=== PATIENT | male | born 1985 | race African-American/Black ===

== ENCOUNTER 2018-06-20 06:14 | Inpatient (IN) ==
[2018-06-20] MEDS ORDERED: Calcium Gluconate Inj 1 GM in Sodium Chlor 0.9% Inj 100 ML IV.SIG ONE (06:42)
[2018-06-20 06:44] LABS: Baso # (Auto) 0.1 th/mm3 (0.0-0.2); Baso % (Auto) 1.2 % (0.0-2.0); Eos # (Auto) 0.2 th/mm3 (0.0-0.4); Eos % (Auto) 3.1 % (0.0-4.0); Hematocrit 35.8 % (39.0-51.0); Lymph % (Auto) 13.3 % (9.0-44.0); Mean Corpuscular HGB Conc 33.4 % (32.0-36.0); Mean Corpuscular Hemoglobin 29.9 pg (27.0-34.0); Mean Corpuscular Volume 89.4 fL (80.0-100.0); Mean Platelet Volume 8.5 fL (7.0-11.0); Mono # (Auto) 0.4 th/mm3 (0.0-0.9); Mono % (Auto) 5.2 % (0.0-8.0); Neut # (Auto) 5.5 th/mm3 (1.8-7.7); Neut % (Auto) 77.2 % (16.0-70.0); Platelet Count 139 th/mm3 (150-450); Red Cell Distribution Width 17.8 % (11.6-17.2); White Blood Count 7.2 th/mm3 (4.0-11.0)
--- NOTE | 2018-06-20 06:51 | ED ---
HPI General Chief Complaint: Chest Pain Stated Complaint: Chest pains Time Seen by Provider: 06/20/18 06:26 Source: EMS Mode of arrival: EMS Limitations: other (Distress) History of Present Illness HPI narrative: 32-year-old male came to the emergency room brought in by EMS chest pain and respiratory distress. He has also been vomiting he told the EMS. Here the patient is not talking much. He is in end-stage kidney disease on hemodialysis. Patient is from [place] and his last dialysis was on . He missed his Thursday dialysis. His blood pressure was 189 systolic. Patient was also complaining of some chest pain. Once again he has not been talking much since he has come to the emergency room. It is hard for me to know the location and the intensity of the pain. Related Data Home Medications Medication Instructions Recorded Confirmed clonidine HCl 0.3 mg PO BID 06/20/18 06/20/18 hydralazine 100 mg PO TID 06/20/18 06/20/18 labetalol 400 mg PO BID 06/20/18 06/20/18 Allergies Allergy/AdvReac Type Severity Reaction Status Date / Time No Known Allergies Allergy Verified 06/20/18 06:26 Review of Systems ROS: all other systems reviewed are negative [facility] [place] Medical History Medical History AV fistula (Acute) Asthma (Acute) CHF (congestive heart failure) (Acute) Renal failure (Acute) Family History Family History Other Family history of hypertension Social History Social History Substance History: Active Abuse Second Hand Smoke Exposure: Yes Smoking Status: Current every day smoker Tobacco Type: Cigarettes How Often Do You Have a Drink Containing Alcohol: Never Recent Travel in [facility] within the Last 8 Weeks: Yes Recent Out of Country Travel within the Last 8 Weeks: No Substance Abuse Detail Marijuana: Substance Use Status: Active Route Used Substance Abuse: Inhalation Reason for Use: Get High Immunization History Tetanus Immunization: <5 Years Exam Narrative Exam Narrative: GENERAL: Moderate to significant distress, not very communicative SKIN: Focused skin assessment warm/dry. HEAD: Atraumatic. Normocephalic. EYES: Pupils equal and round. No scleral icterus. No injection or drainage. ENT: No nasal bleeding or discharge. Dry lips and mucous member. NECK: Trachea midline. No JVD. CARDIOVASCULAR: Regular rate and rhythm. No murmur appreciated. RESPIRATORY: Tachypnea, grunting, accessory muscles use for respiration GASTROINTESTINAL: Abdomen soft, non-tender, nondistended. Hepatic and splenic margins not palpable. MUSCULOSKELETAL: No obvious deformities. No clubbing. No cyanosis. No edema. NEUROLOGICAL: Awake and alert. No obvious cranial nerve deficits. Motor grossly within normal limits. Normal speech. PSYCHIATRIC: Appropriate mood and affect; insight and judgment normal. Course Initial Documented Vital Signs Pulse Rate 95 H 06/20/18 06:28 Respiratory Rate 20 06/20/18 06:28 Blood Pressure 185/104 H 06/20/18 06:28 Pulse Oximetry 95 06/20/18 06:28 Last Documented Vital Signs Temperature 98.8 F 06/20/18 12:00 Pulse Rate 77 06/20/18 12:00 Respiratory Rate 15 06/20/18 12:00 Blood Pressure 158/79 H 06/20/18 12:00 Pulse Oximetry 92 L 06/20/18 12:40 Critical Care Time Critical Care Time: Yes Total Critical Care Time: 30 Attestation: Aggregate critical care time was 30 minutes. Time to perform other separately billable procedures was not included in the critical care time. My time did not include minutes spent treating any other patients simultaneously or on activities that did not directly contribute to the patient's treatment. The services I provided to this patient were to treat and/or prevent clinically significant deterioration that could result in: Respiratory distress, hyperkalemia, end-stage kidney disease, hemodialysis dependent, hyperkalemia management, emergent dialysis I provided critical care services requiring my management, as noted below: Chart data review, documentation time, medication orders and management, vital sign assessments/reviewing monitor data, ordering and reviewing lab tests, ordering and interpreting/reviewing x-rays and diagnostic studies, care of the patient and discussion of the patient with the admitting physicians. Medical Decision Making MDM Narrative Medical decision making narrative: 6:52 AM I discussed the case with Dr. Spann was arranging for dialysis emergently. Given his potassium patient is getting IV calcium, IV bicarb, IV insulin and D50. I discussed the case with the manager play Dr. Aragon and he is here to see the patient and admit the patient to the ICU. Patient is in a critical condition. Patient was started on BiPAP. Current blood pressure is 173/102. Medical Screen Exam Complete: Yes Emergency Medical Condition: Yes Lab Data Result diagrams: 06/20/18 06:27 Lab Results 06/20/18 06/20/18 06/20/18 Range/Units 06:27 06:27 06:27 WBC 7.2 (4.0-11.0) th/mm3 RBC 4.00 L (4.50-5.90) mil/mm3 Hgb 12.0 L (13.0-17.0) gm/dL POC Hgb (Calc) 11.9 L (13.0-17.0) g/dL Hct 35.8 L (39.0-51.0) % POC Hct 35.0 L (39-51.0) % MCV 89.4 (80.0-100.0) fL MCH 29.9 (27.0-34.0) pg MCHC 33.4 (32.0-36.0) % RDW 17.8 H (11.6-17.2) % Plt Count 139 L (150-450) th/mm3 MPV 8.5 (7.0-11.0) fL Neut % (Auto) 77.2 H (16.0-70.0) % Lymph % (Auto) 13.3 (9.0-44.0) % [place] % (Auto) 5.2 (0.0-8.0) % Eos % (Auto) 3.1 (0.0-4.0) % Baso % (Auto) 1.2 (0.0-2.0) % Neut # (Auto) 5.5 (1.8-7.7) th/mm3 Lymph # (Auto) 1.0 (1.0-4.8) th/mm3 [place] # (Auto) 0.4 (0.0-0.9) th/mm3 Eos # (Auto) 0.2 (0.0-0.4) th/mm3 Baso # (Auto) 0.1 (0.0-0.2) th/mm3 WBC Differential . Differential Comment Auto diff final POC Sodium 138 (137-144) mmol/L POC Potassium 7.4 H* (3.6-5.0) mmol/L POC Chloride 110 (102-111) mmol/L POC BUN 80 H (5-21) mg/dL POC Creatinine 17.5 H* (0.6-1.3) mg/dL POC Glucose 88 (68-110) mg/dL Troponin I 0.34 H (0.02-0.05) ng/mL Nasal Screen MRSA (PCR) (Negative) Hepatitis A IgM Ab (Nonreactive) Hep Bs Antigen (Nonreactive) Hep B Core IgM Ab (Nonreactive) Hep C IgG Ab (Nonreactive) 06/20/18 06/20/18 Range/Units 08:40 09:20 WBC (4.0-11.0) th/mm3 RBC (4.50-5.90) mil/mm3 Hgb (13.0-17.0) gm/dL POC Hgb (Calc) (13.0-17.0) g/dL Hct (39.0-51.0) % POC Hct (39-51.0) % MCV (80.0-100.0) fL MCH (27.0-34.0) pg MCHC (32.0-36.0) % RDW (11.6-17.2) % Plt Count (150-450) th/mm3 MPV (7.0-11.0) fL Neut % (Auto) (16.0-70.0) % Lymph % (Auto) (9.0-44.0) % [place] % (Auto) (0.0-8.0) % Eos % (Auto) (0.0-4.0) % Baso % (Auto) (0.0-2.0) % Neut # (Auto) (1.8-7.7) th/mm3 Lymph # (Auto) (1.0-4.8) th/mm3 [place] # (Auto) (0.0-0.9) th/mm3 Eos # (Auto) (0.0-0.4) th/mm3 Baso # (Auto) (0.0-0.2) th/mm3 WBC Differential Differential Comment POC Sodium (137-144) mmol/L POC Potassium (3.6-5.0) mmol/L POC Chloride (102-111) mmol/L POC BUN (5-21) mg/dL POC Creatinine (0.6-1.3) mg/dL POC Glucose (68-110) mg/dL Troponin I (0.02-0.05) ng/mL Nasal Screen MRSA (PCR) Not detected (Negative) Hepatitis A IgM Ab Nonreactive (Nonreactive) Hep Bs Antigen Nonreactive (Nonreactive) Hep B Core IgM Ab Nonreactive (Nonreactive) Hep C IgG Ab Nonreactive (Nonreactive) Imaging Data Radiologist's impression: Chest X-Ray 06/20/18 06:27 CONCLUSION: Moderate cardiomegaly in this 32-year-old, abnormal. Mild interstitial edema. Evaluation suggested. ECG Data Attestation: I personally reviewed and interpreted this ECG as follows: Interpretation: Twelve-lead EKG was reviewed by me. Normal sinus rhythm, left axis deviation, peaked T waves. Heart rate of 95 bpm Discharge Plan Discharge Disposition Patient Disposition: ED Admit(ED Internal Use Only) Discharge Order Discharge Orders: AMA Discharge (Routine); Ordered 06/20/18 Ordered By: Brannon Aragon ED Use Only Admit Order (Routine); Ordered 06/20/18 Ordered By: Ursula Caro Physicians Team ED Provider: Ursula Caro Primary Care Provider: UNKNOWN, Attending Provider: Brannon Aragon Other Providers: Vasquez Spann Status ED Status: Left Department Discharge Information Discharge Date/Time: 06/20/18 08:35
[2018-06-20] MEDS: Dextrose 50% in Water 50 ML Vial IV.PUSH ONE ×2 (06:58→07:03)
[2018-06-20] MEDS ORDERED: niCARdipine Inj 25 MG in Sodium Chlor 0.9% Inj 240 ML IV.CONT PRN (06:59)
[2018-06-20] MEDS ORDERED: Acetaminophen 325 MG Tablet PO PRN ×2 (07:00→07:02)
[2018-06-20] MEDS ORDERED: Morphine Inj 4 MG/ML Vial IV.PUSH PRN (07:00)
[2018-06-20] MEDS ORDERED: Bisacodyl 10 MG Supp RECTAL PRN (07:00)
[2018-06-20] MEDS ORDERED: Temazepam 15 MG Capsule PO PRN (07:00)
[2018-06-20] MEDS ORDERED: Heparin 10,000 UNITS/10 ML Vial (for IV use) OTHER PRN ×2 (07:02)
[2018-06-20] MEDS ORDERED: Sod Chloride 0.9% Inj 1,000 ML IV.CONT PRN (07:02)
[2018-06-20] MEDS ORDERED: Gelatin 12 MM/7 MM Topical Foam TOPICAL PRN (07:02)
[2018-06-20] MEDS ORDERED: Sod Chloride 0.9% Inj 1,000 ML OTHER PRN ×2 (07:02)
[2018-06-20] MEDS ORDERED: Albumin Human 25% Inj 100 ML IV.SIG PRN (07:02)
--- NOTE | 2018-06-20 07:08 | XR ---
EXAM DATE: 06/20/2018 6:47 AM EST AGE/SEX: 32 years / Male INDICATIONS: Dyspnea. CLINICAL DATA: This is the patient's initial encounter. Patient reports that signs and symptoms have been present for 1 day and indicates a pain score of 5/10. MEDICAL/SURGICAL HISTORY: Hypertension. Congestive heart failure. Renal failure. Dialysis. . AV fistula, Left. COMPARISON: No prior exams available for comparison. FINDINGS: A single AP view of the chest demonstrates the lungs to be symmetrically aerated without evidence of mass, infiltrate or effusion. There is moderate cardiomegaly with mild interstitial edema. Osseous st ructures are intact. CONCLUSION: Moderate cardiomegaly in this 32-year-old, abnormal. Mild interstitial edema. Evaluation suggested. Electronically signed by: Maycol Vaca MD Board Certified Radiologist 06/20/2018 7:07 AM EST
[2018-06-20] MEDS ORDERED: Heparin - SQ 10,000 UNITS/ML Vial SQ SCH (08:00)
[2018-06-20] MEDS ORDERED: Senna/Docusate Sodium 8.6/50 MG Tablet PO SCH (09:00)
[2018-06-20] MEDS ORDERED: Labetalol 200 MG Tablet PO SCH (09:00)
--- NOTE | 2018-06-20 09:42 | ECG ---
Date Performed: 06/20/2018 Time Performed: 06:20:33 PTAGE: 32 years EKG: Sinus rhythm POSSIBLE RIGHT ATRIAL ENLARGEMENT LEFT ATRIAL ENLARGEMENT MARKED LEFT AXIS DEVIATION INTRAVENTRICULA R CONDUCTION DELAY T WAVE CHANGES, PEAKED T WAVES ABNORMAL ECG NO PREVIOUS TRACING DOCTOR: Brenda Guerin Interpretating Date/Time 06/20/2018 09:41:32
--- NOTE | 2018-06-20 10:07 | P.CONNP ---
History of Present Illness Service: Nephrology Consult date: 06/20/18 Requesting Physician: Ursula Caro Reason for Consult: End-stage renal disease Primary Care Provider: UNKNOWN Chief Complaint: Shortness of breath and chest pain History of Present Illness: Patient is a 32-year-old -[place] male with history of end-stage renal disease, hypertension, he is from [place] and last dialysis was on , he has a left arm AV fistula, patient presented early today with increasing shortness of breath, chest pain and feeling sick, with nausea and vomiting, patient does not talk much, in the ER he was sick placed on BiPAP and then given treatment for hyperkalemia initial potassium of 7.4, peak T waves, he was given glucose, D50, insulin, sodium bicarbonate, when I saw him he was on dialysis and again answering questions briefly he is sleepy, he was off BiPAP machine and breathing better oxygen. Patient states he is on dialysis for last 5 years. Review of Systems Constitutional: Reports fatigue, Reports malaise Eyes: Denies blind spots, Denies blurry vision, Denies bulging eyes, Denies change in vision, Denies double vision, Denies discharge, Denies dry eyes, Denies floaters, Denies irritation, Denies itchy eyes, Denies loss of vision, Denies pain, Denies requires corrective lenses, Denies sensitivity to light, Denies other Ears, Nose, Mouth, and Throat: Denies abnormal hearing, Denies bleeding gums, Denies bad breath, Denies change in voice, Denies dental pain, Denies difficulty swallowing, Denies dizziness, Denies dry mouth, Denies ear discharge , Denies ear pain, Denies facial pain, Denies headache(s), Denies hearing loss, Denies hoarseness, Denies lip swelling, Denies nosebleed, Denies mouth lesions, Denies mouth pain, Denies nasal congestion, Denies nasal discharge, Denies nasal obstruction, Denies nasal trauma, Denies neck lump, Denies neck pain, Denies nose pain, Denies pain with swallowing, Denies poor balance, Denies post nasal drip, Denies ringing in the ears, Denies sinus pain, Denies sinus pressure , Denies sore throat, Denies throat swelling, Denies tongue swelling, Denies other Cardiovascular: Reports chest pain, Reports foot swelling, Reports generalized swelling, Reports shortness of breath Respiratory: Reports shortness of breath Gastrointestinal: Reports nausea, Reports vomiting Genitourinary: Reports urinary frequency (Diminished) Musculoskeletal: Reports muscle cramps Skin/Breast: Denies acne, Denies bleeding lesions, Denies boil, Denies breast swelling, Denies breast skin changes, Denies breast pain, Denies breast lump, Denies change in breast shape, Denies change in hair, Denies change in skin color, Denies changing lesions, Denies dry skin, Denies excessive hair growth, Denies hair loss, Denies itching, Denies lesions, Denies nail changes, Denies new lesions, Denies nipple discharge, Denies non-healing lesions, Denies redness , Denies sensitivity to light, Denies rash, Denies skin pain, Denies skin ulcer , Denies sores, Denies stretch quinones, Denies unusual bruising, Denies wounds, Denies yellowing of the skin, Denies other Neurologic: Reports weakness Psychiatric: Denies abnormal sleep pattern, Denies anxiety, Denies behavioral changes, Denies change in appetite, Denies change in sex drive, Denies confusion , Denies depression, Denies difficulty concentrating, Denies hearing things others do not hear, Denies hopelessness, Denies irritability, Denies lack of enjoyment, Denies memory loss, Denies mood swings, Denies panic attacks, Denies paranoia, Denies seeing things others do not see, Denies sensing things others do not sense, Denies tactile hallucinations, Denies thoughts of hurting/killing others, Denies thoughts of hurting/killing yourself, Denies other Endocrine: Denies cold intolerance, Denies excessive sweating, Denies flushing, Denies heat intolerance, Denies increased hunger, Denies increased thirst, Denies increased urination, Denies rapid, pounding, or irregular heartbeat, Denies other Hematologic/Lymphatic: Denies easy bleeding, Denies easy bruising, Denies enlarged lymph nodes, Denies other Allergic/Immunologic: Denies GI upset with certain foods, Denies hives, Denies itchy eyes, Denies lip swelling, Denies seasonal runny nose, Denies throat swelling, Denies tongue swelling, Denies wheezing, Denies other PMFSH - History History Provided By: Patient - Medical History Medical History: Medical History (Last Updated 06/20/18 @ 10:00 by Vasquez Spann MD) AV fistula Asthma CHF (congestive heart failure) Renal failure - Family History Family History: Family History (Last Updated 06/20/18 @ 10:00 by Vasquez Spann MD) Other Family history of hypertension - Social History I have reviewed the patient's Social History: Yes - Tobacco History Second Hand Smoke Exposure: Yes Tobacco Use In Past 30 Days: Yes Smoking Status: Current every day smoker Tobacco Type: Cigarettes - Alcohol History How Often Do You Have a Drink Containing Alcohol: Never - Substance Use History Substance History: Active Abuse - Substance Use Type Marijuana Status: Active Route Used: Inhalation Reason for Use: Get High - Travel History Recent Travel in the [place] Within the Last 8 Weeks: Yes Recent Travel Out of the Country Within the Last 8 Weeks: No - Immunization History Tetanus Immunization: <5 Years Medications and Allergies Active Medications: Active Medications Acetaminophen (Tylenol) 650 mg PO Q6H PRN PRN Reason: PAIN 1-10 AND/OR FEVER >101F Acetaminophen (Tylenol) 650 mg PO UNSCH PRN PRN Reason: SEE LABEL COMMENTS Al Hydroxide/Mg Hydroxide (Milk Of Brooke Pereyra) 30 ml PO Q12H PRN PRN Reason: Mild Constipation Albuterol (Duoneb Neb (Prn)) 1 ampul NEB Q2HR NEB PRN PRN Reason: WHEEZING Bisacodyl (Dulcolax Supp) 10 mg RECTAL DAILY PRN PRN Reason: SEVERE CONSITIPATION Chlorhexidine Gluconate (Chlorhexidine 2% Cloth) 3 pack TOPICAL DAILY@0400 PRN PRN Reason: Extra cloth needed Stop: 06/26/18 03:59 Chlorhexidine Gluconate (Chlorhexidine 2% Cloth) 3 pack TOPICAL DAILY@0400 [place] Stop: 06/26/18 03:59 Clonidine HCl (Catapres) 0.3 mg PO BID [place] Clonidine HCl (Catapres) 0.1 mg PO UNSCH PRN PRN Reason: SEE LABEL COMMENTS Diphenhydramine HCl (Benadryl) 25 mg PO UNSCH PRN PRN Reason: SEE LABEL COMMENTS Gelatin (Gelfoam 12 Mm/7 Mm Topical) 1 foam TOPICAL PRN PRN PRN Reason: help stop bleeding from site Gentamicin Sulfate (Gentamicin Inj) 20 mg OTHER WITH DIALYSIS PRN PRN Reason: Dwell Gentamycin Lock Heparin Sodium (Porcine) (Heparin Inj) 5,000 units SQ Q8H [facility] Last Admin: 06/20/18 07:42 Dose: 5,000 units Heparin Sodium (Porcine) (Heparin Inj) 8,000 units OTHER WITH DIALYSIS PRN PRN Reason: for machine prime Heparin Sodium (Porcine) (Heparin Inj) 1,000 units OTHER WITH DIALYSIS PRN PRN Reason: Dwell Heparin to Fill Catheter Hydralazine HCl (Apresoline) 100 mg PO TID [facility] Nicardipine HCl 25 mg/ Sodium (Chloride) 250 mls @ 50 mls/hr IV.CONT TITRATE PRN; Protocol PRN Reason: Per Protocol Albumin Human (Flexbumin 25% Inj) 100 mls @ 60 mls/hr IV.SIG WITH DIALYSIS PRN PRN Reason: hypotension / volume replace Sodium Chloride (Ns Inj) 1,000 mls @ 0 mls/hr OTHER .Q0M PRN PRN Reason: for prime and rinse back Sodium Chloride (Ns Inj) 1,000 mls @ 200 mls/hr OTHER .Q5H PRN PRN Reason: for dialyzer flush PRN Sodium Chloride (Ns Inj) 1,000 mls @ 0 mls/hr IV.CONT .Q0M PRN PRN Reason: hypotension / volume replace Labetalol HCl (Trandate) 400 mg PO BID [facility] Lactulose (Lactulose Liq) 30 ml PO DAILY PRN PRN Reason: SEVERE CONSITIPATION Mannitol (Mannitol Inj) 12.5 gm IV.PUSH UNSCH PRN PRN Reason: hypotension / volume replace Morphine Sulfate (Morphine Inj) 2 mg IV.PUSH Q2H PRN PRN Reason: PAIN SCALE 6 TO 10 Nitroglycerin (Nitrostat Sl) 0.4 mg SL Q5M PRN PRN Reason: CHEST PAIN Ondansetron HCl (Zofran Inj) 4 mg IV.PUSH Q6H PRN PRN Reason: NAUSEA OR VOMITING Ondansetron HCl (Zofran Inj) 4 mg IV.PUSH UNSCH PRN PRN Reason: NAUSEA OR VOMITING Senna/Docusate Sodium (Selene-Colace) 1 tab PO BID [facility] Sennosides (Senokot) 17.2 mg PO Q12H PRN PRN Reason: Moderate Constipation Sodium Chloride (Ns Flush) 2 ml IV.FLUSH BID [place] Sodium Chloride (Ns Flush) 2 ml IV.FLUSH PRN PRN PRN Reason: FLUSH AFTER USING IV ACCESS Sodium Chloride (Ns Flush) 5 ml IV.FLUSH PRN PRN PRN Reason: flush each lumen during HD Temazepam (Restoril) 15 mg PO HS PRN PRN Reason: INSOMNIA Allergies Allergy/AdvReac Type Severity Reaction Status Date / Time No Known Allergies Allergy Verified 06/20/18 06:26 Home Medications Medication Instructions Recorded Confirmed Type clonidine HCl 0.3 mg PO BID 06/20/18 06/20/18 History hydralazine 100 mg PO TID 06/20/18 06/20/18 History labetalol 400 mg PO BID 06/20/18 06/20/18 History Exam Vital signs: Vital Signs 06/20/18 06:28 06/20/18 07:37 06/20/18 08:38 Temperature Pulse Rate 95 H 78 Respiratory Rate 20 18 Blood Pressure 185/104 H 174/115 H Pulse Oximetry 95 100 100 06/20/18 09:00 Temperature 98.2 F Pulse Rate 79 Respiratory Rate 19 Blood Pressure 179/104 H Pulse Oximetry 100 Intake & Output 06/19/18 06/20/18 06/20/18 18:59 06:59 18:59 Intake Total 110 / 110 Balance 110 / 110 Weight 104.326 kg 95.9 kg Intake: IV 110 / 110 Calcium Gluconate Inj 1 GM In 110 / 110 NS Inj 100 ML @ 110 mls/hr IV. SIG ONCE ONE Rx#:[id number] Other: Weight On Admission 95.9 kg Narrative: GENERAL: Well-nourished, well-developed patient. SKIN: Warm and dry. HEAD: Normocephalic. EYES: No scleral icterus. No injection or drainage. NECK: Supple, trachea midline. No JVD or lymphadenopathy. CARDIOVASCULAR: Regular rate and rhythm without murmurs, gallops, or rubs. RESPIRATORY: Breath sounds diminished at bases. GASTROINTESTINAL: Abdomen soft, non-tender, nondistended. EXTREMITIES: 1+ edema, AV fistula left arm NEUROLOGICAL: Patient is sleepy, wakes up and oriented x 3. Non-focal. Results - Lab Results 06/20/18 06:27 Assessment and Plan - Assessment (1) End stage renal disease Code(s): N18.6 - End stage renal disease Status: Acute Plan: Patient has missed his dialysis and presented with increasing shortness of breath, chest pain and was in volume overload placed on BiPAP and now on dialysis feeling better, continue to remove fluids ultrafiltration of 4 L plan on 1K bath Repeat BMP after dialysis 2 g sodium 60 mEq of potassium renal diet Fluid restriction to 1.2 L a day (2) Hyperkalemia Code(s): E87.5 - Hyperkalemia Status: Acute Plan: Patient is on dialysis continue to follow (3) Hypertensive CHF Code(s): I11.0 - Hypertensive heart disease with heart failure Status: Acute Plan: Patient has diastolic dysfunction and volume overload Cardene drip restart outpatient medication (4) Hypertension Code(s): I10 - Essential (primary) hypertension Status: Acute Plan: Noncompliance with an hypertensive urgency
[2018-06-20 11:08] LABS: Hepatitis A IgM Antibody Nonreactive (Nonreactive); Hepatitits B Surface Antigen Nonreactive (Nonreactive)
[2018-06-20 12:43] VITALS: O2SAT 92
[2018-06-20 12:49] VITALS: BP 158/79; PULSE 77; TEMP 98.8
[2018-06-20 12:50] VITALS: RESP 15
--- NOTE | 2018-06-20 14:07 | P.HPCC ---
History of Present Illness Primary Care Physician: UNKNOWN Chief Complaint: Shortness of breath and chest pain History of Present Illness: 32-year-old -[place] male with history of end-stage renal disease, hypertension, he is from [place] and last dialysis was on , he has a left arm AV fistula, patient presented early today with increasing shortness of breath, chest pain and feeling sick, with nausea and vomiting, in the ER he was sick placed on BiPAP and then given treatment for hyperkalemia initial potassium of 7.4, peak T waves, he was given glucose, D50, insulin, sodium bicarbonate, when Patient states he is on dialysis for last 5 years. He was admitted to ICU for emergent dialysis and monitoring of his electrolytes disturbances. Inpatient Certification: I certify that the inpatient services were ordered in accordance with Medicare regulations governing the order. This includes certification that hospital inpatient services are reasonable and necessary and in the case of services not specified as inpatient-only under 42 CFR 419.22(n), that they are appropriately provided as inpatient services in accordance to with the 2-midnight benchmark under 43 CFR 412.3(e) Estimated Total Length of Stay (Days): 5 Plans for Post Hospital Care: Not yet determined Review of Systems unobtainable due to mental status PMFSH - History History Provided By: Patient - Medical History Medical History: Medical History (Last Updated 06/20/18 @ 10:00 by Vasquez Spann MD) AV fistula Asthma CHF (congestive heart failure) Renal failure - Family History Family History: Family History (Last Updated 06/20/18 @ 10:00 by Vasquez Spann MD) Other Family history of hypertension - Tobacco History Second Hand Smoke Exposure: Yes Tobacco Use In Past 30 Days: Yes Smoking Status: Current every day smoker Tobacco Type: Cigarettes - Alcohol History How Often Do You Have a Drink Containing Alcohol: Never - Substance Use History Substance History: Active Abuse - Substance Use Type Marijuana Status: Active Route Used: Inhalation Reason for Use: Get High - Travel History Recent Travel in the [place] Within the Last 8 Weeks: Yes Recent Travel Out of the Country Within the Last 8 Weeks: No - Immunization History Tetanus Immunization: Unsure Hx Influenza Vaccine This Season: Yes Medications and Allergies Allergies Allergy/AdvReac Type Severity Reaction Status Date / Time No Known Allergies Allergy Verified 06/20/18 06:26 Home Medications Medication Instructions Recorded Confirmed Type clonidine HCl 0.3 mg PO BID 06/20/18 06/20/18 History hydralazine 100 mg PO TID 06/20/18 06/20/18 History labetalol 400 mg PO BID 06/20/18 06/20/18 History Results - Labs CBC & Chem 7: 06/20/18 06:27 Labs: Short CBC 06/20/18 Range/Units 06:27 WBC 7.2 (4.0-11.0) th/mm3 Hgb 12.0 L (13.0-17.0) gm/dL Hct 35.8 L (39.0-51.0) % Plt Count 139 L (150-450) th/mm3 Cardiac Enzymes 06/20/18 Range/Units 06:27 Troponin I 0.34 H (0.02-0.05) ng/mL - Imaging Impressions Chest X-Ray 06/20/18 06:27 CONCLUSION: Moderate cardiomegaly in this 32-year-old, abnormal. Mild interstitial edema. Evaluation suggested. Exam Vital signs: Vital Signs 06/20/18 06:28 06/20/18 07:37 06/20/18 08:38 Temperature Pulse Rate 95 H 78 Respiratory Rate 20 18 Blood Pressure 185/104 H 174/115 H Pulse Oximetry 95 100 100 06/20/18 09:00 06/20/18 10:00 06/20/18 11:00 Temperature 98.2 F Pulse Rate 79 75 74 Respiratory Rate 19 18 14 Blood Pressure 179/104 H 146/84 H 183/89 H Pulse Oximetry 96 96 96 06/20/18 12:00 06/20/18 12:40 Temperature 98.8 F Pulse Rate 77 Respiratory Rate 15 Blood Pressure 158/79 H Pulse Oximetry 95 92 L Intake & Output 06/19/18 06/20/18 06/20/18 18:59 06:59 18:59 Intake Total 380 / 380 Balance 380 / 380 Weight 104.326 kg 95.9 kg Intake: IV 110 / 110 Calcium Gluconate Inj 1 GM In 110 / 110 NS Inj 100 ML @ 110 mls/hr IV. SIG ONCE ONE Rx#:[id number] Oral 270 / 270 Other: Weight On Admission 95.9 kg - Constitutional moderate distress - Routine HEENT Exam Head: Present: normocephalic, atraumatic Eye: Present: EOMI, PERRL, normal accommodation ENT: Present: mucous membranes moist - Routine Neck Exam Present: supple, full ROM. Absent: carotid bruit - Routine Chest/Breast/Axilla Exam Chest wall: Absent: tenderness, mass - Routine Respiratory Exam Present: accessory muscle use, respiratory distress, crackles - Routine Cardiovascular Exam Present: RRR, S1, S2 - Routine Abdominal Exam Present: soft, normoactive bowel sounds - Routine Extremities Exam Absent: cyanosis, clubbing, edema - Routine Skin Exam Present: intact. Absent: cyanosis, erythema - Routine Neurological Exam Present: alert, altered mental status, moving all extremities Septic Shock Reassessment Septic shock perfusion: reassessment completed Caprini VTE Risk Assessment Caprini VTE Risk Assessment: Moderate/High Risk (score >= 2) Caprini Risk Assessment Model: Point Value = 1 Point Value = 2 Point Value = 3 Point Value = 5 Age 41-60 Minor surgery BMI > 25 kg/m2 Swollen legs Varicose veins or History of unexplained or recurrent spontaneous Oral contraceptives or hormone replacement Sepsis (< 1 month) Serious lung disease, including pneumonia (< 1 month) Abnormal pulmonary function Acute myocardial infarction Congestive heart failure (< 1 month) History of inflammatory bowel disease Medical patient at bed rest Age 61-74 Arthroscopic surgery Major open surgery (> 45 min) Laparoscopic surgery (> 45 min) Malignancy Confined to bed (> 72 hours) Immobilizing plaster cast Central venous access Age >= 75 History of VTE Family history of VTE Factor V Leiden Prothrombin [id number] Lupus anticoagulant Anticardiolipin antibodies Elevated serum homocysteine Heparin-induced thrombocytopenia Other congenital or acquired thrombophilia Stroke (< 1 month) Elective arthroplasty Hip, pelvis, or leg fracture Acute spinal cord injury (< 1 month) Prophylaxis Regimen: Total Risk Factor Score Risk Level Prophylaxis Regimen 0-1 Low Early ambulation 2 Moderate Order ONE of the following: *Sequential Compression Device (SCD) *Heparin 5000 units SQ BID 3-4 Higher Order ONE of the following medications: *Heparin 5000 units SQ TID *Enoxaparin/Lovenox 40 mg SQ daily (WT < 150 kg, CrCl > 30 mL/min) *Enoxaparin/Lovenox 30 mg SQ daily (WT < 150 kg, CrCl > 10-29 mL/min) *Enoxaparin/Lovenox 30 mg SQ BID (WT < 150 kg, CrCl > 30 mL/min) AND/OR *Sequential Compression Device (SCD) 5 or more Highest Order ONE of the following medications: *Heparin 5000 units SQ TID (Preferred with Epidurals) *Enoxaparin/Lovenox 40 mg SQ daily (WT < 150 kg, CrCl > 30 mL/min) *Enoxaparin/Lovenox 30 mg SQ daily (WT < 150 kg, CrCl > 10-29 mL/min) *Enoxaparin/Lovenox 30 mg SQ BID (WT < 150 kg, CrCl > 30 mL/min) AND *Sequential Compression Device (SCD) Assessment and Plan - Assessment and Plan Plan: Respiratory failure -Fluid overload -Emergent dialysis -BiPAP PRN -O2 supplements to keep sats above 92 End-stage renal disease With hyperkalemia -Treated with glucose, insulin, sodium bicarb, calcium gluconate in the emergency department -Emergent dialysis per nephrology -Further management per Dr. Spann\ Altered mental status -Metabolic toxic -Emergent dialysis -Neurochecks per unit routine Hypertension -Resume home meds DVT GI prophylaxis -Teds SCDs -Subcu heparin -Renal diet 35 minutes of critical care H&P: Quality - VTE Deep Vein Thrombosis/Pulmonary Embolism Present on Admission: No
[2018-06-21] MEDS ORDERED: Chlorhexidine Gluconate 2% 1 Pack (2 Cloths) TOPICAL PRN (04:00)
[2018-06-21] MEDS ORDERED: Chlorhexidine Gluconate 2% 1 Pack (2 Cloths) TOPICAL SCH (04:00)
== END 2018-06-20 13:25 | disposition left against medical advice (07) | DRG 640 ==
LOC: NEPE 06:14 → NEDA 06:55 → HIMC 08:33
PROVIDERS: ADMIT Internal Medicine Critical Care Medicine; ATTEND Internal Medicine Critical Care Medicine
CPT/HCPCS: 71010; 71045; 80074; 82435; 82565; 82947; 84132; 84295; 84484; 84520; 85025; 87641; 90774; 90784; 90935; 93005; 94002; 94656; 96374; 99291; C8952; J0610; J1644; J2405; J7030